=== PATIENT | female | born 1970 | race Caucasian/White ===

== ENCOUNTER 2023-02-28 05:40 | Emergency (ER) | payer MEDICAID ==
[~2023-02-28] VITALS: Ht 157.5 cm; Wt 50.9 kg
[2023-02-28 05:49] VITALS: BP 124/61; PULSE 95; RESP 16; TEMP 98.3; O2SAT 99
[2023-02-28] MEDS ORDERED: triamcinolone acetonide 40mg/ml inj IM ONE (07:30)
== END 2023-02-28 07:51 | disposition home or self-care (01) ==
LOC: ER 05:44
DX: J30.9 Allergic rhinitis, unspecified (principal)
CPT/HCPCS: 96372; 99283; J3301